=== PATIENT | female | born 1970 | race Two or more races ===

== ENCOUNTER 2016-12-04 10:44 | Inpatient (IN) | payer MEDICAID ==
[~2016-12-04] VITALS: Ht 162.6 cm; Wt 65.3 kg
[2016-12-04] MEDS ORDERED: Diazepam 10mg/2ml Inj IV ONE (11:00)
[2016-12-04 11:10] VITALS: BP 143/81
[2016-12-04 11:17] LABS: BASOPHILS % (AUTO) 1.1 % (0.0-2.0); EOSINOPHILS % (AUTO) 2.7 % (0.0-3.0); LYMPHOCYTES % (AUTO) 22.3 % (20.0-45.0); MEAN CORPUSCULAR HGB CONC 32.4 G/DL (32.0-36.0); MEAN CORPUSCULAR VOLUME 86 FL (80-99); MEAN PLATELET VOLUME 9.4 FL (6.5-10.1); MONOCYTES % (AUTO) 4.4 % (1.0-10.0); NEUTROPHILS % (AUTO) 69.5 % (45.0-75.0); PLATELET COUNT 278 K/UL (150-450); RED BLOOD COUNT 4.86 M/UL (4.20-5.40); RED CELL DISTRIBUTION WIDTH 11.9 % (11.6-14.8); WHITE BLOOD COUNT 8.7 K/UL (4.8-10.8)
[2016-12-04 11:30] VITALS: BP 156/68
[2016-12-04 11:32] LABS: APPEARANCE,URINE CLEAR; KETONES,URINE NEGATIVE (NEGATIVE); LEUKOCYTE ESTERASE ,URINE NEGATIVE (NEGATIVE); NITRITE,URINE NEGATIVE (NEGATIVE); PH,URINE 7 (4.5-8.0); PROTEIN,URINE NEGATIVE (NEGATIVE); UROBILINOGEN,URINE NORMAL MG/DL (0.0-1.0)
[2016-12-04 11:57] LABS: BACTERIA,URINE FEW /HPF; SQUAMOUS EPITHELIAL CELL,UR FEW /LPF (NONE/OCC); WBC,URINE 0-2 /HPF (0 - 2)
[2016-12-04 12:00] LABS: ALANINE AMINOTRANSFERASE 10 U/L (3-33); ALBUMIN/GLOBULIN RATIO 1.2 (1.0-2.7); ANION GAP 15 (5-15); ASPARTATE AMINO TRANSFERASE 15 U/L (5-40); CALCIUM 8.8 mg/dL (8.6-10.2); CARBON DIOXIDE 23 mEQ/L (20-30); CHLORIDE 101 mEQ/L (98-107); CREATININE 0.7 mg/dL (0.5-0.9); GLOMERULAR FILTRATION RATE > 60 mL/min (>60); HEMOLYSIS 10; POTASSIUM 3.6 mEQ/L (3.4-4.9); SODIUM 139 mEQ/L (135-145); TOTAL PROTEIN 7.1 g/dL (6.6-8.7); TROPONIN I < 0.30 ng/mL (<=0.30)
[2016-12-04 12:10] LABS: CKMB < 1.5 ng/mL (< 3.8)
[2016-12-04 12:16] VITALS: BP 118/71
--- NOTE | 2016-12-04 12:35 | Diagnostic Imaging Report ---
Indication: Dizziness Technique: Contiguous 5 mm thick transaxial imaging of the head obtained in a Siemens Sensation [address] scanner. Soft tissue and bone windows generated. Total Dose length Product (DLP): [address] Dose Index Volume (CTDIvol): 70.38 mGy Comparison: none Findings: The size and configuration of the cortical sulci, basal cisterns, and ventricles are within normal limits for age. There is no mass effect, midline shift, or edema identified. There is no evidence of acute hemorrhage or abnormal intra-axial or extra-axial fluid collections. The bones and soft tissues are unremarkable. There is mucosal thickening within the visualized portions of the paranasal sinuses. Impression: No mass effect, edema or acute bleed. Sinusitis The CT scanner at [facility] is accredited by the [employer] and the scans are performed using protocols designed to limit radiation exposure to as low as reasonably achievable to attain images of sufficient resolution adequate for diagnostic evaluation.
--- NOTE | 2016-12-04 12:38 | Diagnostic Imaging Report ---
Indication: Chest Pain Comparison: None A single view chest radiograph was obtained. Findings: Cardiomediastinal appearance is within normal limits for age. Pulmonary vascularity is appropriate. The diaphragmatic contour is smooth and costophrenic angles are sharp. No pleural effusions are identified. The bones are unremarkable. Impression: No acute findings
[2016-12-04] MEDS ORDERED: Meclizine 25mg tab ORAL ONE (12:45)
--- NOTE | 2016-12-04 13:32 | Emergency Room Report ---
History of Present Illness General Chief Complaint: Syncope Source: Patient Present Illness HPI 46-year-old female presents ED for syncopal episode. Per EMS patient stated that she went to work today and once he got to work she was feeling dizzy and nauseous. Vomiting. Patient was sitting in a chair and she slumped over. No reported head injury. Patient here is awake alert oriented x3. States that her head feels like spinning and she feels dizzy and nauseous. Worse with head turning. Denies any headaches, blurry vision. Denies chest pain or shortness of breath. No other aggravating or relieving factors. Denies any other associated symptoms Allergies: Uncoded Allergies: PENECILLIN (Allergy, Unknown, 12/04/16) Patient History Past Medical History: HTN Past Surgical History: none Pertinent Family History: none Social History: Denies: alcohol use, drug use, smoking Now: No Immunizations: UTD Reviewed Nursing Documentation: PMH: Agreed, PSxH: Agreed Nursing Documentation-PMH Past Medical History: No History, Except For Hx Hypertension: Yes Review of Systems All Other Systems: negative except mentioned in HPI Physical Exam Vital Signs Date Time Temp Pulse Resp B/P Pulse Ox O2 Delivery O2 Flow Rate FiO2 12/04/16 10:40 97.3 75 18 155/100 100 Room Air Sp02 EP Interpretation: reviewed, normal General Appearance: no apparent distress, alert, GCS 15, non-toxic Head: normocephalic, atraumatic Eyes: bilateral eye PERRL, bilateral eye normal inspection ENT: hearing grossly normal, normal pharynx, no angioedema, normal voice Neck: full range of motion, supple/symm/no masses Respiratory: chest non-tender, lungs clear, normal breath sounds, speaking full sentences Cardiovascular #1: regular rate, rhythm, no edema Cardiovascular #2: 2+ carotid (R), 2+ carotid (L), 2+ radial (R), 2+ radial (L) , 2+ dorsalis pedis (R), 2+ dorsalis pedis (L) Gastrointestinal: normal bowel sounds, non tender, soft, non-distended, no guarding, no rebound Rectal: deferred Genitourinary: normal inspection, no CVA tenderness Musculoskeletal: back normal, gait/station normal, normal range of motion, non- tender Neurologic: alert, oriented x3, responsive, motor strength/tone normal, sensory intact, speech normal Psychiatric: judgement/insight normal, memory normal, mood/affect normal, no suicidal/homicidal ideation Reflexes: 3+ bicep (R), 3+ bicep (L), 3+ tricep (R), 3+ tricep (L), 3+ knee (R) , 3+ knee (L) Skin: normal color, no rash, warm/dry, well hydrated Lymphatic: no adenopathy Medical Decision Making Diagnostic Impression: Primary Impression: Syncope Qualified Codes: R55 - Syncope and collapse Additional Impressions: Dizziness Unsteady gait ER Course Hospital Course 46-year-old F presents ED s/p syncopal episode, dizziness, and unsteady gait. Differential diagnoses include: MA/unstable angina, arrythmia, dehydration, CVA/ TIA, vertigo Clinical course Patient placed on stretcher. 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 After initial history and physical I ordered labs, EKG, chest x-ray, IVFs, CT Brain, valium, zofran labs reviewed- no leukocytosis, hemoglobin/hematocrit ok, electrolytes okay, troponins negative EKG- NSR, no acute ischemic changes Chest x-ray- no acute process CT brain-unremarkable Patient has no focal neurological deficits. However patient remains dizzy and unsteady gait after her medications. Case discussed with Dr. Mcgraw and he agreed to accept the patient to his service for further care and support I. I feel this is a highly complex case requiring extensive working including EKG/Rhythm strip, Xray/CT/US, Blood/urine lab work, repeat exams while in ED, and administration of strong opiates/narcotics for pain control, admission to hospital or close patient follow up. Diagnosis - syncope, dizziness, unsteady gait admitted to telemetry in serious condition Labs Test 12/04/16 11:07 12/04/16 11:16 12/04/16 11:29 White Blood Count 8.7 K/UL (4.8-10.8) Red Blood Count 4.86 M/UL (4.20-5.40) Hemoglobin 13.6 G/DL (12.0-16.0) Hematocrit 42.0 % (37.0-47.0) Mean Corpuscular Volume 86 FL (80-99) Mean Corpuscular Hemoglobin 28.0 PG (27.0-31.0) Mean Corpuscular Hemoglobin Concent 32.4 G/DL (32.0-36.0) Red Cell Distribution Width 11.9 % (11.6-14.8) Platelet Count 278 K/UL (150-450) Mean Platelet Volume 9.4 FL (6.5-10.1) Neutrophils (%) (Auto) 69.5 % (45.0-75.0) Lymphocytes (%) (Auto) 22.3 % (20.0-45.0) Monocytes (%) (Auto) 4.4 % (1.0-10.0) Eosinophils (%) (Auto) 2.7 % (0.0-3.0) Basophils (%) (Auto) 1.1 % (0.0-2.0) Urine Color Pale yellow Urine Appearance Clear Urine pH 7 (4.5-8.0) Urine Specific [place] 1.010 (1.005-1.035) Urine Protein Negative (NEGATIVE) Urine Glucose (UA) Negative (NEGATIVE) Urine Ketones Negative (NEGATIVE) Urine Occult Blood 4+ (NEGATIVE) Urine Nitrite Negative (NEGATIVE) Urine Bilirubin Negative (NEGATIVE) Urine Urobilinogen Normal MG/DL (0.0-1.0) Urine Leukocyte Esterase Negative (NEGATIVE) Urine RBC 2-4 /HPF (0 - 2) Urine WBC 0-2 /HPF (0 - 2) Urine Squamous Epithelial Cells Few /LPF (NONE/OCC) Urine Bacteria Few /HPF (NONE) Urine HCG, Qualitative Negative Sodium Level 139 mEQ/L (135-145) Potassium Level 3.6 mEQ/L (3.4-4.9) Chloride Level 101 mEQ/L (98-107) Carbon Dioxide Level 23 mEQ/L (20-30) Anion Gap 15 (5-15) Blood Urea Nitrogen 11 mg/dL (7-23) Creatinine 0.7 mg/dL (0.5-0.9) Estimat Glomerular Filtration Rate > 60 mL/min (>60) Glucose Level 97 mg/dL (74-106) Calcium Level 8.8 mg/dL (8.6-10.2) Total Bilirubin 0.3 mg/dL (0.0-1.2) Aspartate Amino Transf (AST/SGOT) 15 U/L (5-40) Alanine Aminotransferase (ALT/SGPT) 10 U/L (3-33) Alkaline Phosphatase 51 U/L (35-104) Total Creatine Kinase 101 U/L (26-140) Creatine Kinase MB < 1.5 ng/mL (< 3.8) Creatine Kinase MB Relative Index Troponin I < 0.30 ng/mL (<=0.30) Pro-B-Type Natriuretic Peptide 43 pg/mL (0-125) Total Protein 7.1 g/dL (6.6-8.7) Albumin 3.9 g/dL (3.5-5.2) Globulin 3.2 g/dL Albumin/Globulin Ratio 1.2 (1.0-2.7) EKG Diagnostic Results Rate: normal Rhythm: NSR ST Segments: no acute changes ASA given to the pt in ED: No Rhythm Strip Diag. Results EP Interpretation: yes Rhythm: NSR, no PVC's, no ectopy Chest X-Ray Diagnostic Results EP Interpretation: No Findings: no consolidation, no effusion, no pneumothorax, no acute cardiopulmonary disease Number of Views: 1 CT/MRI/US Diagnostic Results CT/MRI/US Diagnostic Results : Imaging Test Ordered: CT head Impression no acute process Last Vital Signs Date Time Temp Pulse Resp B/P Pulse Ox O2 Delivery O2 Flow Rate FiO2 12/04/16 12:16 96.8 58 16 118/71 99 Room Air Status: unchanged Disposition: ADMITTED INPATIENT Condition: Serious Referrals: NON PHYSICIAN (PCP) JUDITH ALLEN M.D. Dec 04, 2016 13:32
--- NOTE | 2016-12-04 13:57 | Neurology Progress Note ---
Objective Physical Exam Last Vital Signs Date Time Temp Pulse Resp B/P Pulse Ox O2 Delivery O2 Flow Rate FiO2 12/04/16 12:16 96.8 58 16 118/71 99 Room Air Laboratory Tests Test 12/04/16 11:07 12/04/16 11:16 12/04/16 11:29 White Blood Count 8.7 K/UL (4.8-10.8) Red Blood Count 4.86 M/UL (4.20-5.40) Hemoglobin 13.6 G/DL (12.0-16.0) Hematocrit 42.0 % (37.0-47.0) Mean Corpuscular Volume 86 FL (80-99) Mean Corpuscular Hemoglobin 28.0 PG (27.0-31.0) Mean Corpuscular Hemoglobin Concent 32.4 G/DL (32.0-36.0) Red Cell Distribution Width 11.9 % (11.6-14.8) Platelet Count 278 K/UL (150-450) Mean Platelet Volume 9.4 FL (6.5-10.1) Neutrophils (%) (Auto) 69.5 % (45.0-75.0) Lymphocytes (%) (Auto) 22.3 % (20.0-45.0) Monocytes (%) (Auto) 4.4 % (1.0-10.0) Eosinophils (%) (Auto) 2.7 % (0.0-3.0) Basophils (%) (Auto) 1.1 % (0.0-2.0) Urine Color Pale yellow Urine Appearance Clear Urine pH 7 (4.5-8.0) Urine Specific [place] 1.010 (1.005-1.035) Urine Protein Negative (NEGATIVE) Urine Glucose (UA) Negative (NEGATIVE) Urine Ketones Negative (NEGATIVE) Urine Occult Blood 4+ (NEGATIVE) H Urine Nitrite Negative (NEGATIVE) Urine Bilirubin Negative (NEGATIVE) Urine Urobilinogen Normal MG/DL (0.0-1.0) Urine Leukocyte Esterase Negative (NEGATIVE) Urine RBC 2-4 /HPF (0 - 2) H Urine WBC 0-2 /HPF (0 - 2) Urine Squamous Epithelial Cells Few /LPF (NONE/OCC) Urine Bacteria Few /HPF (NONE) Urine HCG, Qualitative Negative Sodium Level 139 mEQ/L (135-145) Potassium Level 3.6 mEQ/L (3.4-4.9) Chloride Level 101 mEQ/L (98-107) Carbon Dioxide Level 23 mEQ/L (20-30) Anion Gap 15 (5-15) Blood Urea Nitrogen 11 mg/dL (7-23) Creatinine 0.7 mg/dL (0.5-0.9) Estimat Glomerular Filtration Rate > 60 mL/min (>60) Glucose Level 97 mg/dL (74-106) Calcium Level 8.8 mg/dL (8.6-10.2) Total Bilirubin 0.3 mg/dL (0.0-1.2) Aspartate Amino Transf (AST/SGOT) 15 U/L (5-40) Alanine Aminotransferase (ALT/SGPT) 10 U/L (3-33) Alkaline Phosphatase 51 U/L (35-104) Total Creatine Kinase 101 U/L (26-140) Creatine Kinase MB < 1.5 ng/mL (< 3.8) Creatine Kinase MB Relative Index Troponin I < 0.30 ng/mL (<=0.30) Pro-B-Type Natriuretic Peptide 43 pg/mL (0-125) Total Protein 7.1 g/dL (6.6-8.7) Albumin 3.9 g/dL (3.5-5.2) Globulin 3.2 g/dL Albumin/Globulin Ratio 1.2 (1.0-2.7) Impression/Recommendations Problems: (1) Vertigo, benign positional (2) Syncope, vasovagal Status: unchanged Recommendations # [id number] ESPINOZA ARIAS Dec 04, 2016 13:56
[2016-12-04] MEDS ORDERED: Meclizine 25mg tab ORAL PRN (14:00)
[2016-12-04] MEDS ORDERED: Mylanta II UD 30ml ORAL PRN (14:30)
[2016-12-04] MEDS ORDERED: DuoNeb 0.5-3(2.5)mg/3ml neb HHN PRN (14:30)
[2016-12-04] MEDS ORDERED: Nitroglycerin Subl 0.4mg tab (Bottle Of 25) SL PRN (14:30)
[2016-12-04] MEDS ORDERED: Morphine Sulfate 2mg/ml Inj IVP PRN (14:30)
[2016-12-04] MEDS ORDERED: Miralax 17gm pkt ORAL PRN (14:30)
[2016-12-04] MEDS ORDERED: LORazepam Inj 2mg/ml 1ml IV PRN (14:30)
[2016-12-04 15:27] VITALS: BP 138/78
[2016-12-04] MEDS ORDERED: LISINOPRIL5 MG ORAL (15:27)
[2016-12-04 16:23] VITALS: BP 131/80
[2016-12-04] MEDS ORDERED: SOMA350 MG (17:44)
--- NOTE | 2016-12-04 18:28 | Cardiology Progress Note ---
Assessment/Plan Assessment/Plan The patient is seen and examined, full consult note is dictated. Objective Last 24 Hour Vital Signs Date Time Temp Pulse Resp B/P Pulse Ox O2 Delivery O2 Flow Rate FiO2 12/04/16 16:23 97.7 62 20 131/80 100 Room Air 12/04/16 15:28 96.8 63 16 138/78 100 Room Air 12/04/16 15:27 96.8 63 16 138/78 100 Room Air 12/04/16 12:16 96.8 58 16 118/71 99 Room Air 12/04/16 11:30 96.8 71 21 156/68 99 Room Air 12/04/16 11:10 97.3 67 24 143/81 100 Room Air 12/04/16 10:40 97.3 75 18 155/100 100 Room Air Laboratory Tests Test 12/04/16 11:07 12/04/16 11:16 12/04/16 11:29 White Blood Count 8.7 K/UL (4.8-10.8) Red Blood Count 4.86 M/UL (4.20-5.40) Hemoglobin 13.6 G/DL (12.0-16.0) Hematocrit 42.0 % (37.0-47.0) Mean Corpuscular Volume 86 FL (80-99) Mean Corpuscular Hemoglobin 28.0 PG (27.0-31.0) Mean Corpuscular Hemoglobin Concent 32.4 G/DL (32.0-36.0) Red Cell Distribution Width 11.9 % (11.6-14.8) Platelet Count 278 K/UL (150-450) Mean Platelet Volume 9.4 FL (6.5-10.1) Neutrophils (%) (Auto) 69.5 % (45.0-75.0) Lymphocytes (%) (Auto) 22.3 % (20.0-45.0) Monocytes (%) (Auto) 4.4 % (1.0-10.0) Eosinophils (%) (Auto) 2.7 % (0.0-3.0) Basophils (%) (Auto) 1.1 % (0.0-2.0) Urine Color Pale yellow Urine Appearance Clear Urine pH 7 (4.5-8.0) Urine Specific [place] 1.010 (1.005-1.035) Urine Protein Negative (NEGATIVE) Urine Glucose (UA) Negative (NEGATIVE) Urine Ketones Negative (NEGATIVE) Urine Occult Blood 4+ (NEGATIVE) H Urine Nitrite Negative (NEGATIVE) Urine Bilirubin Negative (NEGATIVE) Urine Urobilinogen Normal MG/DL (0.0-1.0) Urine Leukocyte Esterase Negative (NEGATIVE) Urine RBC 2-4 /HPF (0 - 2) H Urine WBC 0-2 /HPF (0 - 2) Urine Squamous Epithelial Cells Few /LPF (NONE/OCC) Urine Bacteria Few /HPF (NONE) Urine HCG, Qualitative Negative Sodium Level 139 mEQ/L (135-145) Potassium Level 3.6 mEQ/L (3.4-4.9) Chloride Level 101 mEQ/L (98-107) Carbon Dioxide Level 23 mEQ/L (20-30) Anion Gap 15 (5-15) Blood Urea Nitrogen 11 mg/dL (7-23) Creatinine 0.7 mg/dL (0.5-0.9) Estimat Glomerular Filtration Rate > 60 mL/min (>60) Glucose Level 97 mg/dL (74-106) Calcium Level 8.8 mg/dL (8.6-10.2) Total Bilirubin 0.3 mg/dL (0.0-1.2) Aspartate Amino Transf (AST/SGOT) 15 U/L (5-40) Alanine Aminotransferase (ALT/SGPT) 10 U/L (3-33) Alkaline Phosphatase 51 U/L (35-104) Total Creatine Kinase 101 U/L (26-140) Creatine Kinase MB < 1.5 ng/mL (< 3.8) Creatine Kinase MB Relative Index Troponin I < 0.30 ng/mL (<=0.30) Pro-B-Type Natriuretic Peptide 43 pg/mL (0-125) Total Protein 7.1 g/dL (6.6-8.7) Albumin 3.9 g/dL (3.5-5.2) Globulin 3.2 g/dL Albumin/Globulin Ratio 1.2 (1.0-2.7) KEVIN STOREY 2, 2017 18:28
[2016-12-04] MEDS: LORazepam 0.5mg tab ORAL SCH (19:14)
--- NOTE | 2016-12-04 19:49 | Consultation ---
DATE OF CONSULTATION: 12/04/2016 CONSULTING PHYSICIAN: Michael Lakhani M.D. REFERRING PHYSICIAN: Ajay Mcgraw D.O. LOCATION: Emergency room. HISTORY OF PRESENT ILLNESS: The patient is a 46-year-old female, seen in neurological consultation, who informs me that she was doing fairly well in her usual state of health, but this morning woke up, feeling well, had her breakfast, and went to work where very soon while sitting, she had acute onset of severe vertigo accompanied by nausea, later an episode of vomiting. She was tried to ambulate and was unable because of instability. She was helped down, given some apples and water, and did not get better. She went to bathroom and on the way back, she lost consciousness and fell. She was described as being very pale and diaphoretic. With this, paramedics were called to the scene. She was brought to emergency room. Blood pressure 155/100, respirations 18, heart rate of 75, and temperature 97.5. Her initial workup included normal CBC study, normal chemistry panel, and normal urinalysis. Imaging studies included a CT scan of the brain, which was normal study with no intracranial abnormalities. No hemorrhage. No midline shift. Chest x-ray, no acute disease noted. Since admission until present, the patient continued to have vertigo, which occurred predominantly when moving ahead and predominantly to the left side. She feels better when she is lying in bed, still with head turned to right. PAST MEDICAL HISTORY: History of hypertension. She has no other major medical problems. MEDICATIONS: Her treatment, she is taking medications for blood pressure, but has no recollection of the name. ALLERGIES: Penicillin. FAMILY HISTORY: Noncontributory. 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 No alcohol. No drug abuse. Nonsmoker. REVIEW OF SYSTEMS: Acute positional vertigo with nausea, unstable gait, but no chest pain. No palpitation. No respiratory problem. No abdominal pain or discomfort. No urinary or bowel incontinence. No evidence of episodes of loss of consciousness, although in her childhood, she had episodes of dizziness. PHYSICAL EXAMINATION: GENERAL: A well-developed, well-nourished, pleasant lady, not in acute distress, lying comfortably in bed. VITAL SIGNS: Now stable. Blood pressure is 118/71 and temperature 96.8. HEENT: Head, normocephalic. No evidence of trauma. Eyes, Ears, Nose, and Throat are clear. NECK: Supple. No meningeal signs. MUSCULOSKELETAL: Examination unremarkable. There are no deformities. Peripheral pulses 1+ and symmetric. MENTAL STATUS: The patient is alert and oriented x3. Her speech is fluent. Language intact. There is no aphasia. No apraxia. Cognitive function normal. CRANIAL NERVES: Cranial Nerves II: Pupils both responding to light and accommodation. Extraocular movement intact. No nystagmus. CRANIAL NERVES V: Normal corneal responses. CRANIAL NERVES VII: No facial asymmetry. CRANIAL NERVES VIII: Grossly normal hearing. CRANIAL NERVES IX THROUGH XII: Tongue is midline. Symmetric palate elevation. MOTOR EXAMINATION: Normal muscle tone. Strength 5/5 in all extremities. No involuntary movements. Deep tendon reflexes are 1+ and symmetric with downgoing toes on both sides. Sensory examination normal to pinprick and light touch. Gait not tested. The patient had severe vertigo when lifting head and turning to left. IMPRESSION: 1. Benign positional vertigo. 2. Hypertension. 3. Syncope, vasovagal. DISCUSSION: 1. The patient developed positional vertigo, nausea, vomiting, and subsequently developed a syncope, which appears to be vasovagal in origin. 2. Initial Treatment with meclizine, intravenous fluids, and Valium so far not affective. 3. Her current neurological exam was unremarkable. There are no lateralizing findings except positional vertigo. RECOMMENDATION: 1. Continue with IV fluids. 2. Ativan 0.25 mg t.i.d. 3. Meclizine 50 mg q.i.d. 4. Bedrest. 5. Reassess in a.m. Thank you for allowing me to see this interesting patient in neurological consultation. Michael Lakhani M.D. DR: RADHA JOB#: [id number] CC:
[2016-12-04 20:00] VITALS: BP 130/71
--- NOTE | 2016-12-04 20:20 | History and Physical Report ---
DATE OF ADMISSION: 12/04/2016 CONSULTANTS: 1. Michael Lakhani M.D. 2. Serg Apodaca M.D. 3. Reg Edmonds M.D. CHIEF COMPLAINTS: Dizziness, weakness, and syncope. HISTORY OF PRESENT ILLNESS: The patient is a 46-year-old female, who lives at home presents with a history of syncopal episodes, witnessed. The patient became lightheaded and passed out. No incontinence. No seizure noted. The patient shortly after came to and was transferred to [facility] where she was diagnosed with syncope, dizziness, and weakness and being admitted to telemetry. Currently, calm in the ER [place]. No complaints. PAST MEDICAL HISTORY: Hypertension. PAST SURGICAL HISTORY: None. MEDICATIONS: Includes , Zofran, and Valium. ALLERGIES: Penicillin. SOCIAL HISTORY: No smoking. No alcohol. No intravenous drug abuse. FAMILY HISTORY: Noncontributory. REVIEW OF SYSTEMS: No chest pain. No shortness of breath. No nausea, vomiting, or diarrhea. PHYSICAL EXAMINATION: GENERAL: Calm in bed, oriented x3, and in no acute distress. VITAL SIGNS: Show temperature is 96 degrees, pulse 58, respirations 16, and blood pressure 118/71. CARDIOVASCULAR: No murmur. LUNGS: Poor air exchange. ABDOMEN: Bowel sounds are positive. Nontender and nondistended. EXTREMITIES: No clubbing, cyanosis, or edema. NEUROLOGIC: Cranial nerves II through XII are grossly intact. Deep tendon reflexes are 2+. Muscle strength is 5/5. LABORATORY DATA: Labs at this time show CBC is normal. BMP is normal. Troponin is less than 0.3. Urinalysis, 4+ occult blood, otherwise normal. ASSESSMENT: 1. Syncope. 2. Dizziness. 3. Weakness. 4. Hypertension. PLAN: 1. Continue premedicatoins. 2. Resume home medications. 3. OT, PT, and dietary evaluation. 4. CBC and BMP in the morning. 5. Troponin q.8 x3. 6. EKG in the morning. 7. Dr. Edmonds, Dr. Lakhani, and Dr. Apodaca to consult. 8. We will continue to follow this patient medically. Ajay Mcgraw D.O. DR: JANAE JOB#: [id number] CC:
[2016-12-04] MEDS: Heparin 5000 units/ml inj SUBQ SCH (22:44)
--- NOTE | 2016-12-05 | Consultation ---
DATE OF CONSULTATION: 12/04/2016 CARDIOLOGY CONSULTATION CONSULTING PHYSICIAN: Serg Apodaca M.D. REFERRING PHYSICIAN: Ajay Mcgraw D.O. REASON FOR CONSULTATION: Management of syncope. HISTORY OF PRESENT ILLNESS: The patient is an unfortunate 46-year-old female with no prior history of syncope, who presents to the hospital with complaints of presyncope, which was followed by syncope. She was at work, started to feel dizzy, lightheaded, and nauseous and she had one episode of vomiting. While she was sitting in a chair, she slumped over. There was no reported injury. When she came around, she had vertigo and continued to be nauseous and dizzy. She was brought to the emergency department of this hospital where initial blood pressure is 155/100, pulse was. At this time, she denied any chest pain or shortness of breath. Cardiology consultation was made at request of Dr. Mcgraw for evaluation of syncope and some allergies with penicillin. PAST MEDICAL HISTORY: Hypertension. PAST SURGICAL HISTORY: None. MEDICATIONS: List of medications at home includes Soma 350 mg daily as needed and lisinopril 5 mg p.o. daily. SOCIAL HISTORY: Denies any tobacco, alcohol, or illicit drug use. REVIEW OF SYSTEMS: A 12-system review done essentially negative except what mentioned in the history of present illness. the pertinent history including no history of diarrhea, no prior history of loss of appetite or decrease in p.o. intake. There is no history of heavy menstruation. PHYSICAL EXAMINATION: VITAL SIGNS: Blood pressure was 150/55 , respirations 18, pulse of 75, temperature 97.3 degrees Fahrenheit, and O2 saturation 100% on room air. GENERAL: The patient is a very pleasant 46-year-old female, in no apparent respiratory distress. Alert and oriented x4. HEENT: Atraumatic and normocephalic. Anicteric. Pupils are equal, round, and reactive to light and accommodation. Extraocular muscles are intact. NECK: JVP is less than 5 cm. No carotid bruits. Carotid upstroke is 2+ bilaterally. CVS: Normal S1 and S2. Regular rate and rhythm. No murmurs, gallops, or rubs. PMI is at fourth intercostal space at midclavicular line. LUNGS: Clear to auscultation bilaterally. ABDOMEN: Soft, nontender, and nondistended. No hepatosplenomegaly. Positive bowel sounds. EXTREMITIES: No evidence of edema, clubbing, or cyanosis. IMAGING: Chest x-ray showed no acute cardiopulmonary disease. CT scan of head showed no mass effect, edema, or acute bleed. LABORATORY FINDINGS: WBC 8.7, hemoglobin of 13.6, hematocrit of 42.0, and platelet count is 270,000. Sodium is 139, potassium 3.6, chloride 101, bicarbonate 23, BUN of 11, creatinine 0.7, glucose is 97, and calcium is 8.8. Her troponin I is less than 0.3. ProBNP was 43. DIAGNOSTIC STUDIES: A 12-lead electrocardiogram shows sinus rhythm with a rate of 73 with normal axis, left ventricular hypertrophy by voltage criteria, with no acute ST and T-wave abnormalities. ASSESSMENT AND PLAN: The patient is a very unfortunate 46-year-old female, seen in Cardiology consultation at request of Dr. Mcgraw. 1. Syncope. This was preceded by presyncope, most likely etiology is neurally mediated syncope, although I cannot rule out orthostatic hypotension. The patient does not have any triggering factor that would have caused hypovolemia. I would like to perform a complete workup of syncope including 2D echocardiography and orthostatic vitals. The patient required aggressive hydration by mouth liquids if tolerated. 2. Accelerated hypertension. On arrival to the emergency department, the patient will be on amlodipine at 2.5 mg daily and we will up titrate this medication. 3. Left ventricular hypertrophy follow with 2D echocardiography and make necessary recommendations. I would like to thank, Dr. Mcgraw, for allowing me to participate in the care of this patient. Serg Apodaca M.D. DR: AYLA JOB#: [id number] CC:
[2016-12-05 00:04] VITALS: BP 108/69
[2016-12-05 04:05] VITALS: BP 116/75
[2016-12-05 08:02] VITALS: BP 115/72
[2016-12-05 08:57] LABS: BASOPHILS % (AUTO) 1.5 % (0.0-2.0); LYMPHOCYTES % (AUTO) 31.9 % (20.0-45.0); MEAN CORPUSCULAR HEMOGLOBIN 27.9 PG (27.0-31.0); MEAN CORPUSCULAR HGB CONC 32.2 G/DL (32.0-36.0); MEAN CORPUSCULAR VOLUME 87 FL (80-99); MEAN PLATELET VOLUME 9.6 FL (6.5-10.1); MONOCYTES % (AUTO) 5.8 % (1.0-10.0); NEUTROPHILS % (AUTO) 54.8 % (45.0-75.0); PLATELET COUNT 286 K/UL (150-450); RED BLOOD COUNT 4.69 M/UL (4.20-5.40); RED CELL DISTRIBUTION WIDTH 11.6 % (11.6-14.8); WHITE BLOOD COUNT 5.6 K/UL (4.8-10.8)
[2016-12-05] MEDS: LORazepam 0.5mg tab ORAL SCH ×2 (09:07→17:54)
[2016-12-05] MEDS: Heparin 5000 units/ml inj SUBQ SCH ×2 (09:08→21:00)
[2016-12-05 09:12] LABS: INR 1.1 (0.9-1.1); PROTHROMBIN TIME 10.9 SEC (9.30-11.50)
[2016-12-05 09:25] LABS: ALANINE AMINOTRANSFERASE 10 U/L (3-33); ALBUMIN/GLOBULIN RATIO 1.2 (1.0-2.7); ANION GAP 15 (5-15); ASPARTATE AMINO TRANSFERASE 14 U/L (5-40); CALCIUM 9.2 mg/dL (8.6-10.2); CARBON DIOXIDE 25 mEQ/L (20-30); CHLORIDE 104 mEQ/L (98-107); CHOLESTEROL 195 mg/dL (< 200); CREATININE 0.8 mg/dL (0.5-0.9); GLOMERULAR FILTRATION RATE > 60 mL/min (>60); HEMOLYSIS 2; LDL CHOLESTEROL (CALC.) 117 mg/dL (60-99); POTASSIUM 3.7 mEQ/L (3.4-4.9); SODIUM 144 mEQ/L (135-145); TOTAL PROTEIN 7.2 g/dL (6.6-8.7)
--- NOTE | 2016-12-05 11:49 | General Progress Note ---
Assessment/Plan Problem List: (1) Syncope ICD Codes: R55 - Syncope and collapse SNOMED: 575020701, [id number] Qualifiers: Qualified Codes: R55 - Syncope and collapse (2) Unsteady gait ICD Codes: R26.81 - Unsteadiness on feet SNOMED: 57729607, 872792046 (3) Vertigo, benign positional ICD Codes: H81.10 - Benign paroxysmal vertigo, unspecified ear SNOMED: 734319105 (4) Dizziness ICD Codes: R42 - Dizziness and giddiness SNOMED: 792739214, 459587670 (5) HTN (hypertension) ICD Codes: I10 - Essential (primary) hypertension SNOMED: 77576728 Status: stable, progressing, tolerating diet Assessment/Plan ot pt diet neuro cardio eval dc if clear Subjective Constitutional: Reports: weakness Allergies: Coded Allergies: PENICILLINS (Verified Allergy, Unknown, 12/04/16) Uncoded Allergies: PENECILLIN (Allergy, Unknown, 12/04/16) All Systems: reviewed and negative except above Subjective calm in bed Objective Last 24 Hour Vital Signs Date Time Temp Pulse Resp B/P Pulse Ox O2 Delivery O2 Flow Rate FiO2 12/05/16 09:25 89 12/05/16 09:20 74 12/05/16 09:15 62 12/05/16 08:02 97.9 61 18 115/72 99 Room Air 12/05/16 07:50 68 12/05/16 04:05 98.8 50 18 116/75 96 Room Air 12/05/16 04:00 57 12/05/16 00:04 98.2 53 19 108/69 98 Room Air 12/05/16 00:03 53 55 79 12/05/16 00:00 62 12/04/16 23:51 68 16 Room Air 21 12/04/16 21:46 61 65 76 12/04/16 20:00 58 12/04/16 20:00 97.8 61 21 130/71 98 Room Air 12/04/16 16:23 97.7 62 20 131/80 100 Room Air 12/04/16 16:00 58 12/04/16 15:28 96.8 63 16 138/78 100 Room Air 12/04/16 15:27 96.8 63 16 138/78 100 Room Air 12/04/16 12:16 96.8 58 16 118/71 99 Room Air Intake and Output 12/04/16 12/05/16 19:00 07:00 Intake Total 100 ml Balance 100 ml Intake Oral 100 ml # Voids 4 1 Laboratory Tests 12/05/16 06:10: White Blood Count 5.6, Red Blood Count 4.69, Hemoglobin 13.1, Hematocrit 40.7, Mean Corpuscular Volume 87, Mean Corpuscular Hemoglobin 27.9, Mean Corpuscular Hemoglobin Concent 32.2, Red Cell Distribution Width 11.6, Platelet Count 286, Mean Platelet Volume 9.6, Neutrophils (%) (Auto) 54.8, Lymphocytes (%) (Auto) 31.9, Monocytes (%) (Auto) 5.8, Eosinophils (%) (Auto) 6.0H, Basophils (%) (Auto ) 1.5, Prothrombin Time 10.9, Prothromb Time International Ratio 1.1, Activated Partial Thromboplast Time 29, Sodium Level 144, Potassium Level 3.7, Chloride Level 104, Carbon Dioxide Level 25, Anion Gap 15, Blood Urea Nitrogen 14, Creatinine 0.8, Estimat Glomerular Filtration Rate > 60, Glucose Level 79, Calcium Level 9.2, Total Bilirubin 0.4, Aspartate Amino Transf (AST/SGOT) 14, Alanine Aminotransferase (ALT/SGPT) 10, Alkaline Phosphatase 54, Total Protein 7.2, Albumin 4.0, Globulin 3.2, Albumin/Globulin Ratio 1.2, Triglycerides Level 60, Cholesterol Level 195, LDL Cholesterol 117H, HDL Cholesterol 66H, Cholesterol/HDL Ratio 3.0L, Thyroid Stimulating Hormone (TSH) 1.060 Height (Feet): 5 Height (Inches): 4.00 Weight (Pounds): 144 General Appearance: lethargic EENT: normal ENT inspection Neck: normal alignment Cardiovascular: normal peripheral pulses, normal rate, regular rhythm Respiratory/Chest: chest wall non-tender, lungs clear, normal breath sounds Abdomen: normal bowel sounds, non tender, soft Extremities: normal inspection Edema: no edema noted Arm (L), no edema noted Arm (R), no edema noted Leg (L), no edema noted Leg (R), no edema noted Pedal (L), no edema noted Pedal (R), no edema noted Generalized Neurologic: responsive, motor weakness Skin: normal pigmentation, warm/dry GRAVES,ANGELA Dec 05, 2016 11:48
--- NOTE | 2016-12-05 11:58 | Neurology Progress Note ---
Interim History Interim History ROS Limited/Unobtainable: No Complaints: positional vertigo sleepy Events: less dizzy Objective Physical Exam Last Vital Signs Date Time Temp Pulse Resp B/P Pulse Ox O2 Delivery O2 Flow Rate FiO2 12/05/16 09:25 89 12/05/16 08:02 97.9 18 115/72 99 Room Air 12/04/16 23:51 21 Laboratory Tests Test 12/05/16 06:10 White Blood Count 5.6 K/UL (4.8-10.8) Red Blood Count 4.69 M/UL (4.20-5.40) Hemoglobin 13.1 G/DL (12.0-16.0) Hematocrit 40.7 % (37.0-47.0) Mean Corpuscular Volume 87 FL (80-99) Mean Corpuscular Hemoglobin 27.9 PG (27.0-31.0) Mean Corpuscular Hemoglobin Concent 32.2 G/DL (32.0-36.0) Red Cell Distribution Width 11.6 % (11.6-14.8) Platelet Count 286 K/UL (150-450) Mean Platelet Volume 9.6 FL (6.5-10.1) Neutrophils (%) (Auto) 54.8 % (45.0-75.0) Lymphocytes (%) (Auto) 31.9 % (20.0-45.0) Monocytes (%) (Auto) 5.8 % (1.0-10.0) Eosinophils (%) (Auto) 6.0 % (0.0-3.0) H Basophils (%) (Auto) 1.5 % (0.0-2.0) Prothrombin Time 10.9 SEC (9.30-11.50) Prothromb Time International Ratio 1.1 (0.9-1.1) Activated Partial Thromboplast Time 29 SEC (23-33) Sodium Level 144 mEQ/L (135-145) Potassium Level 3.7 mEQ/L (3.4-4.9) Chloride Level 104 mEQ/L (98-107) Carbon Dioxide Level 25 mEQ/L (20-30) Anion Gap 15 (5-15) Blood Urea Nitrogen 14 mg/dL (7-23) Creatinine 0.8 mg/dL (0.5-0.9) Estimat Glomerular Filtration Rate > 60 mL/min (>60) Glucose Level 79 mg/dL (74-106) Calcium Level 9.2 mg/dL (8.6-10.2) Total Bilirubin 0.4 mg/dL (0.0-1.2) Aspartate Amino Transf (AST/SGOT) 14 U/L (5-40) Alanine Aminotransferase (ALT/SGPT) 10 U/L (3-33) Alkaline Phosphatase 54 U/L (35-104) Total Protein 7.2 g/dL (6.6-8.7) Albumin 4.0 g/dL (3.5-5.2) Globulin 3.2 g/dL Albumin/Globulin Ratio 1.2 (1.0-2.7) Triglycerides Level 60 mg/dL (< 150) Cholesterol Level 195 mg/dL (< 200) LDL Cholesterol 117 mg/dL (60-99) H HDL Cholesterol 66 mg/dL (> 60) H Cholesterol/HDL Ratio 3.0 (3.3-4.4) L Thyroid Stimulating Hormone (TSH) 1.060 uIU/mL (0.300-4.500) General: well developed, well nourished, no acute distress Head: normocophalic, atraumatic Neck: no rigidity Neurologic Exam Mental Status: awake, alert, oriented x4, normal cognition, good mathematical skills, normal recent memory, normal remote memory, preserved visuospatial function Speech: normal speech, no dysarthia Language: normal language, no aphasia Cranial Nerve II: fundus normal, visual john, no papilledema Cranial Nerves III, IV, : PERRLA, EOMI, pupils Cranial Nerve V: normal facial sensations, temporales function normal, masseters function normal, pterygoids function normal Cranial Nerve VII: no facial asymmetry, normal facial expressions Cranial Nerve VIII: normal hearing, no nystagmus, other - with head to L get vertigo Cranial Nerve IX: normal palate elevation, gag response Cranial Nerve X: no voice hoarseness Cranial Nerve XI: SCM symmetric, trapezii function normal Cranial Nerve XII: tongue midline, no tongue atrophy/fasciculations Motor System: normal muscle tone, strength 5/5, no involuntary movement, no muscle wasting Sensory: normal pinprick, normal light touch, normal position sense, normal graphesthesia Coordination: normal finger to nose bilaterally, normal heel to [place] bilaterally, negative Romberg test Deep Tendon Reflexes: 2+ ankle (L), 2+ ankle (R), 2+ bicep (L), 2+ bicep (R), 2 + brachioradialis (L), 2+ brachioradialis (R), 2+ knee (L), 2+ knee (R), 2+ tricep (L), 2+ tricep (R) Stance: normal Gait: stable, normal regular, heel + toe gait, other - slow Impression/Recommendations Problems: (1) Vertigo, benign positional (2) Syncope, vasovagal Status: stable, progressing, tolerating diet Recommendations # [id number] carotid ok labs ok CT brain nl cont present rx ok d/c planning ESPINOZA ARIAS Dec 05, 2016 11:58
[2016-12-05 12:01] VITALS: BP 127/73
--- NOTE | 2016-12-05 12:53 | Consultation ---
History of Present Illness General Date patient seen: Dec 05, 2016 Chief Complaint: Syncope Referring physician: Dr. Lake Reason for Consultation: Inpatient management Present Illness HPI 46-year-old female with hx of asthma, htn presented to ED for syncopal episode. She was feeling dizzy and nauseous and vomiting. Patient was sitting in a chair and she slumped over. No reported head injury. Patient here is awake alert oriented x3. States that her head feels like spinning and she feels dizzy and nauseous. she is admitted to telemetry to evaluate her syncopal episode. Allergies: Coded Allergies: PENICILLINS (Verified Allergy, Unknown, 12/04/16) Uncoded Allergies: PENECILLIN (Allergy, Unknown, 12/04/16) Medication History Scheduled Lisinopril (Lisinopril*), 5 MG ORAL DAILY, (Reported) Miscellaneous Medications Carisoprodol* (Soma*), (Reported) Patient History Healthcare decision maker Resuscitation status Full Code Advanced Directive on File Past Medical/Surgical History Past Medical/Surgical History: (1) HTN (hypertension) Review of Systems All Other Systems: negative except mentioned in HPI Physical Exam General Appearance: WD/WN Lines, tubes and drains: peripheral, central line HEENT: normocephalic, atraumatic, anicteric, mucous membranes moist Neck: non-tender, normal alignment, supple Respiratory/Chest: chest wall non-tender, lungs clear Breasts: no masses Cardiovascular/Chest: normal rate Abdomen: normal bowel sounds, non tender Extremities: normal range of motion Skin Exam: normal pigmentation Last 24 Hour Vital Signs Date Time Temp Pulse Resp B/P Pulse Ox O2 Delivery O2 Flow Rate FiO2 12/05/16 12:01 97.0 64 18 127/73 96 Room Air 12/05/16 09:25 89 12/05/16 09:20 74 12/05/16 09:15 62 12/05/16 08:02 97.9 61 18 115/72 99 Room Air 12/05/16 07:50 68 12/05/16 07:30 62 18 Room Air 21 12/05/16 04:05 98.8 50 18 116/75 96 Room Air 12/05/16 04:00 57 12/05/16 00:04 98.2 53 19 108/69 98 Room Air 12/05/16 00:03 53 55 79 12/05/16 00:00 62 12/04/16 23:51 68 16 Room Air 21 12/04/16 21:46 61 65 76 12/04/16 20:00 58 12/04/16 20:00 97.8 61 21 130/71 98 Room Air 12/04/16 16:23 97.7 62 20 131/80 100 Room Air 12/04/16 16:00 58 12/04/16 15:28 96.8 63 16 138/78 100 Room Air 12/04/16 15:27 96.8 63 16 138/78 100 Room Air Intake and Output 12/04/16 12/05/16 19:00 07:00 Intake Total 100 ml Balance 100 ml Intake Oral 100 ml # Voids 4 1 Laboratory Tests Test 12/05/16 06:10 White Blood Count 5.6 K/UL (4.8-10.8) Red Blood Count 4.69 M/UL (4.20-5.40) Hemoglobin 13.1 G/DL (12.0-16.0) Hematocrit 40.7 % (37.0-47.0) Mean Corpuscular Volume 87 FL (80-99) Mean Corpuscular Hemoglobin 27.9 PG (27.0-31.0) Mean Corpuscular Hemoglobin Concent 32.2 G/DL (32.0-36.0) Red Cell Distribution Width 11.6 % (11.6-14.8) Platelet Count 286 K/UL (150-450) Mean Platelet Volume 9.6 FL (6.5-10.1) Neutrophils (%) (Auto) 54.8 % (45.0-75.0) Lymphocytes (%) (Auto) 31.9 % (20.0-45.0) Monocytes (%) (Auto) 5.8 % (1.0-10.0) Eosinophils (%) (Auto) 6.0 % (0.0-3.0) H Basophils (%) (Auto) 1.5 % (0.0-2.0) Prothrombin Time 10.9 SEC (9.30-11.50) Prothromb Time International Ratio 1.1 (0.9-1.1) Activated Partial Thromboplast Time 29 SEC (23-33) Sodium Level 144 mEQ/L (135-145) Potassium Level 3.7 mEQ/L (3.4-4.9) Chloride Level 104 mEQ/L (98-107) Carbon Dioxide Level 25 mEQ/L (20-30) Anion Gap 15 (5-15) Blood Urea Nitrogen 14 mg/dL (7-23) Creatinine 0.8 mg/dL (0.5-0.9) Estimat Glomerular Filtration Rate > 60 mL/min (>60) Glucose Level 79 mg/dL (74-106) Calcium Level 9.2 mg/dL (8.6-10.2) Total Bilirubin 0.4 mg/dL (0.0-1.2) Aspartate Amino Transf (AST/SGOT) 14 U/L (5-40) Alanine Aminotransferase (ALT/SGPT) 10 U/L (3-33) Alkaline Phosphatase 54 U/L (35-104) Total Protein 7.2 g/dL (6.6-8.7) Albumin 4.0 g/dL (3.5-5.2) Globulin 3.2 g/dL Albumin/Globulin Ratio 1.2 (1.0-2.7) Triglycerides Level 60 mg/dL (< 150) Cholesterol Level 195 mg/dL (< 200) LDL Cholesterol 117 mg/dL (60-99) H HDL Cholesterol 66 mg/dL (> 60) H Cholesterol/HDL Ratio 3.0 (3.3-4.4) L Thyroid Stimulating Hormone (TSH) 1.060 uIU/mL (0.300-4.500) Height (Feet): 5 Height (Inches): 4.00 Weight (Pounds): 144 Medications Current Medications Medications (Trade) Dose Ordered Sig/Halima Route PRN Reason Start Time Stop Time Status Last Admin Dose Admin Acetaminophen (Tylenol) 650 mg Q4H PRN ORAL fever 12/04/16 14:30 01/03/17 14:29 Al Hydroxide/Mg Hydroxide (Mylanta II) 30 ml Q6H PRN ORAL dyspepsia 12/04/16 14:30 01/03/17 14:29 Albuterol/ Ipratropium (DuoNeb 0.5-3(2.5)mg/3ml) 3 ml EVERY 4 HOURS PRN HHN Shortness of Breath 12/04/16 14:30 12/09/16 14:29 Clonidine HCl (Catapres) 0.1 mg Q4H PRN ORAL For High Blood Pressure 12/04/16 14:30 01/03/17 14:29 Dextrose (Dextrose 50%) STAT PRN IV Hypoglycemia 12/04/16 14:30 01/03/17 14:29 Heparin Sodium (Porcine) (Heparin 5000 units/ml) 5,000 units EVERY 12 HOURS SUBQ 12/04/16 21:00 01/03/17 20:59 12/05/16 09:08 Lorazepam (Ativan 2mg/ml 1ml) 0.5 mg Q4H PRN IV For Anxiety 12/04/16 14:30 12/11/16 14:29 Lorazepam (Ativan) 0.5 mg BID ORAL 12/04/16 18:00 12/11/16 17:59 12/05/16 09:07 Meclizine HCl (Antivert) 25 mg Q6H PRN ORAL for dizziness 12/04/16 14:00 01/03/17 13:59 Morphine Sulfate (Morphine Sulfate) 1 mg EVERY 4 HOURS PRN IVP For Pain 7-10 12/04/16 14:30 12/11/16 14:29 Nitroglycerin (Ntg) 0.4 mg Q5M X 3 DOSES PRN SL Prn Chest Pain 12/04/16 14:30 01/03/17 14:29 Ondansetron HCl (Zofran) 4 mg Q6H PRN IVP Nausea & Vomiting 12/04/16 14:30 01/03/17 14:29 Polyethylene Glycol (Miralax) 17 gm HSPRN PRN ORAL Constipation 12/04/16 14:30 01/03/17 14:29 Temazepam (Restoril) 15 mg HSPRN PRN ORAL Insomnia 12/04/16 14:30 12/11/16 14:29 Assessment/Plan Problem List: (1) Syncope ICD Codes: R55 - Syncope and collapse SNOMED: 231148750, [id number] Qualifiers: Qualified Codes: R55 - Syncope and collapse (2) Vertigo, benign positional ICD Codes: H81.10 - Benign paroxysmal vertigo, unspecified ear SNOMED: 953370881 (3) HTN (hypertension) ICD Codes: I10 - Essential (primary) hypertension SNOMED: 56738875 Assessment/Plan cardiology work up in process neuro evaluation monitor bp echocardiogram orthostatic bp ANNAMARIE NATHAN Dec 05, 2016 12:53
--- NOTE | 2016-12-05 13:29 | Cardiology Report ---
APPROVED REPORT EXAM: Two-dimensional and M-mode echocardiogram with Doppler and color Doppler. INDICATION LV function M-Mode DIMENSIONS IVSd0.7 (0.7-1.1cm)Left Atrium (MM)3.7 (1.6-4.0cm) LVDd4.1 (3.5-5.6cm)Aortic Root3.3 (2.0-3.7cm) PWd0.8 (0.7-1.1cm)Aortic Cusp Exc.1.9 (1.5-2.0cm) LVDs2.7 (2.5-4.0cm) PWs1.3 cm Normal left ventricular chamber size, systolic function and wall motion. Left ventricular ejection fraction estimated to be 60 %. Mild left ventricular hypertrophy by 2-D. No evidence of pericardial effusion. All other cardiac chamber sizes are within normal limits. Mild focal aortic valve sclerosis with adequate cusp excursion. Mildly thickened mitral valve leaflets with normal excursion. Mild mitral annulus and aortic root calcification. Pulmonic valve not well visualized. Normal tricuspid valve structure. IVC at normal size with physiologic collapse. A color flow and spectral Doppler study was performed and revealed: No aortic regurgitation. Mild mitral regurgitation. Mitral inflow indicates normal left ventricular diastolic function. Trace tricuspid regurgitation. Tricuspid systolic velocities suggests peak right ventricular systolic pressure of 20 mmHg. No pulmonic regurgitation present.
--- NOTE | 2016-12-05 14:15 | Cardiology Report ---
APPROVED REPORT EKG Measurement Heart [id number] Normal sinus rhythm Moderate voltage criteria for LVH, may be normal variant Borderline ECG
[2016-12-05 16:00] VITALS: BP 123/75
[2016-12-05 20:00] VITALS: BP 139/92
[2016-12-05] MEDS ORDERED: NS 275ml ONE (23:04)
[2016-12-05] MEDS ORDERED: Tubing IV Secondary IV ONE (23:04)
[2016-12-08] MEDS ORDERED: MECLIZINE HCL25 MG ORAL (09:44)
--- NOTE | 2016-12-08 09:45 | Discharge Summary ---
Discharge Summary Hospital Course Date of Admission Dec 04, 2016 at 13:00 Date of Discharge Dec 05, 2016 at 23:05 Admitting Diagnosis dizziness, unsteady gait HPI Nicole Cha is a 46 year old female who was admitted on Dec 04, 2016 at 13:00 for Dizziness,Unsteady Gait Hospital Course dc summary # [id number] Discharge Medications New Medications: Meclizine Hcl* (Meclizine*) 25 Mg Tablet 25 MG ORAL THREE TIMES A DAY PRN, #30 TAB Continued Medications: Lisinopril (Lisinopril*) 5 Mg Tablet 5 MG ORAL DAILY, TAB Discharge Condition Upon Discharge: stable Discharge Disposition Patient was discharged to Home () Discharge Diagnoses: Discharge Instructions Discharge Instructions Special Instructions I have been assigned to complete a D/C Summary on this account. I was not involved in the patient management Hui Andrew NP (Vanchtein) Dec 08, 2016 09:45
--- NOTE | 2016-12-09 00:18 | Discharge Summary 2 SIG ---
DATE OF ADMISSION: 12/04/2016 DATE OF DISCHARGE: 12/05/2016 REASON FOR ADMISSION: 46-year-old female presented to the emergency room for syncopal episode. She felt dizzy, nauseous, and vomited x1. She slumped out of the chair where she was sitting. She reported no head injury. The patient upon presentation was awake, alert, and oriented x3. She felt like her head was spinning. She felt dizzy and nauseous and worse while turning head. She denied any headache, blurry vision, chest pain, or shortness of breath. CT of the head in the emergency room was negative fro any acute intracranial pathology. EKG showed normal sinus rhythm with possible left ventricular hypertrophy. Chest x-ray was negative. Electrolytes were stable. Troponin negative. Hemoglobin and hematocrit stable. No leukocytosis. Blood pressure was elevated in the emergency room to 155/100. The patient has known history of hypertension. The patient was admitted to telemetry floor for further management. ADMITTING DIAGNOSES: 1. Syncope. 2. Benign positional vertigo. 3. Hypertensive urgency. HOSPITAL STAY: The patient was admitted on telemetry floor. Cardiology and Neurology consults were requested. CT of the head was negative for any acute intracranial pathology. Carotid duplex was negative. No evidence of stenosis. Orthostatic vital signs were taken, no evidence of orthostatic changes. On telemetry, no evidence of arrhythmia. 2D-echo revealed preserved ejection fraction of 60%, right ventricular systolic pressure of 20, and evidence of mild left ventricular hypertrophy. Blood pressure was managed with a low dose of CHRIS inhibitor. Renal parameters stable. Antivert provided on as-needed basis. Per Neurology and Cardiology, the patient likely has syncope of vasovagal origin along with BPV. Due to the rapid and unexpected improvement in the patient's condition, the patient was discharged in one day. DISCHARGE DIAGNOSES: 1. Syncope, likely vasovagal. 2. Benign positional vertigo. 3. Hypertensive urgency, resolved. DISCHARGE MEDICATIONS: See medication reconciliation list. DISCHARGE INSTRUCTIONS: The patient to follow up with the primary medical doctor. Ajay Mcgraw D.O. I have been assigned to dictate discharge summary on this account and I was not involved in the patient's management. Hui Lilivan N.PRosemary DR: HI JOB#: [id number] CC: MANE
--- NOTE | 2016-12-09 12:05 | Diagnostic Imaging Report ---
APPROVED REPORT CPT Code: 20814 Vascular Symptoms Syncope Doppler Spectral Velocity Analysis RightLeft RIGHT SIDE: CCA/BULB - Imaging reveals irregular, minimal plaque in the carotid bulb. arteries. VERTEBRAL - The vertebral artery is patent, without evidence of stenosis or steal. carotid artery. The Doppler spectral flow analysis indicates the degree of stenosis is minimal (10%) in the common carotid artery, mild (30-50%) in the internal carotid artery, and mild (30-50%) in the external carotid artery. VERTEBRAL- The vertebral artery is patent, without evidence of stenosis or steal.
== END 2016-12-05 23:05 | disposition home or self-care (01) | DRG 111 ==
LOC: EDBD 10:44 → EMR 11:20 → 2E 13:00 → EDBEDREQ 13:05
DX: H81.10 Benign paroxysmal vertigo, unspecified ear (principal); R55 Syncope and collapse; I16.0 Hypertensive urgency; Z88.0 Allergy status to penicillin; I51.7 Cardiomegaly; R26.81 Unsteadiness on feet
CPT/HCPCS: 36415; 70450; 71010; 80053; 80061; 81003; 81025; 82550; 82553; 83880; 84443; 84484; 85025; 85610; 85730; 93005; 93306; 93880; 94664; J2405; J7620

== ENCOUNTER 2017-05-25 19:54 | Emergency (ER) | payer MEDICAID ==
[~2017-05-25] VITALS: Ht 162.6 cm; Wt 66.2 kg
[~2017-05-25 19:54] MED LIST: LISINOPRIL5 MG ORAL; MECLIZINE HCL25 MG ORAL; SOMA350 MG
--- NOTE | 2017-05-25 20:14 | Emergency Room Report ---
History of Present Illness General Chief Complaint: Chest Pain Source: Patient Present Illness HPI Patient presents with chest pressure. Started earlier today. It was worse when she tried to lift her nephew. In addition to that is worse when she lays down it's also somewhat pleuritic. She states it is 7/10 and pressure. Radiating to her back. She has nausea associated with that. This causes fear about cardiac problems. She also has indigestion feelings. The patient has a history of hypertension and GERD. She denies any previous cardiac evaluation. No fever, cough, sore throat, clotting problems, calf pain, swelling VD, dysuria. She is not . 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 Last Menstrual Period: 05/15/17 Now: No Reviewed Nursing Documentation: PMH: Agreed, PSxH: Agreed Nursing Documentation-PMH Past Medical History: No History, Except For Hx Cardiac Problems: No Hx Hypertension: Yes Hx Asthma: Yes Hx Cancer: No Hx Gastrointestinal Problems: No Hx Neurological Problems: No Review of Systems All Other Systems: negative except mentioned in HPI Physical Exam Vital Signs Date Time Temp Pulse Resp B/P Pulse Ox O2 Delivery O2 Flow Rate FiO2 05/25/17 19:59 98.1 64 18 159/91 100 Room Air Sp02 EP Interpretation: reviewed, normal General Appearance: well appearing, no apparent distress, GCS 15 Head: normocephalic Eyes: bilateral eye PERRL, bilateral eye normal inspection ENT: moist mucus membranes Neck: supple Respiratory: lungs clear, normal breath sounds Cardiovascular #1: regular rate, rhythm Cardiovascular #2: 2+ radial (R) Gastrointestinal: normal inspection, normal bowel sounds, non tender, no mass, non-distended Musculoskeletal: back normal, gait/station normal, normal range of motion Neurologic: alert, oriented x3, grossly normal Psychiatric: anxious Skin: normal inspection, warm/dry Medical Decision Making Diagnostic Impression: Primary Impression: Chest pain Qualified Codes: R07.9 - Chest pain, unspecified ER Course Patient presents with chest pain. History is more c/w chest wall strain though there is also some elements of GERD. Evaluation needs to exclude cardiac cause (AMI, ACS, pericarditis). Also need to evaluation lungs. EKG, CXR and labs ordered. Only risk factor is HTN. Will treat GI symptoms. Exam against PE. n Treatment focused on GI cause. EKG normal. CXR normal. Labs unremarkable. Patient pain free after treatment. Patient stable for outpatient observation and treatment. Laboratory Tests Test 05/25/17 20:25 White Blood Count 8.7 K/UL (4.8-10.8) Red Blood Count 4.28 M/UL (4.20-5.40) Hemoglobin 12.6 G/DL (12.0-16.0) Hematocrit 37.8 % (37.0-47.0) Mean Corpuscular Volume 88 FL (80-99) Mean Corpuscular Hemoglobin 29.4 PG (27.0-31.0) Mean Corpuscular Hemoglobin Concent 33.2 G/DL (32.0-36.0) Red Cell Distribution Width 11.1 % (11.6-14.8) L Platelet Count 243 K/UL (150-450) Mean Platelet Volume 10.1 FL (6.5-10.1) Neutrophils (%) (Auto) 50.3 % (45.0-75.0) Lymphocytes (%) (Auto) 33.4 % (20.0-45.0) Monocytes (%) (Auto) 5.3 % (1.0-10.0) Eosinophils (%) (Auto) 8.7 % (0.0-3.0) H Basophils (%) (Auto) 2.3 % (0.0-2.0) H Urine Color Pale yellow Urine Appearance Clear Urine pH 7 (4.5-8.0) Urine Specific [place] 1.005 (1.005-1.035) Urine Protein Negative (NEGATIVE) Urine Glucose (UA) Negative (NEGATIVE) Urine Ketones Negative (NEGATIVE) Urine Occult Blood Negative (NEGATIVE) Urine Nitrite Negative (NEGATIVE) Urine Bilirubin Negative (NEGATIVE) Urine Urobilinogen Normal MG/DL (0.0-1.0) Urine Leukocyte Esterase Negative (NEGATIVE) Urine HCG, Qualitative Negative Sodium Level 139 mEQ/L (135-145) Potassium Level 3.4 mEQ/L (3.4-4.9) Chloride Level 103 mEQ/L (98-107) Carbon Dioxide Level 25 mEQ/L (20-30) Anion Gap 11 (5-15) Blood Urea Nitrogen 12 mg/dL (7-23) Creatinine 0.7 mg/dL (0.5-0.9) Estimate Glomerular Filtration Rate > 60 mL/min (>60) Glucose Level 84 mg/dL (74-106) Calcium Level 9.3 mg/dL (8.6-10.2) Total Bilirubin 0.2 mg/dL (0.0-1.2) Aspartate Amino Transferase (AST) 19 U/L (5-40) Alanine Aminotransferase (ALT) 14 U/L (3-33) Alkaline Phosphatase 58 U/L (35-104) Total Creatine Kinase 177 U/L (26-140) H Troponin I < 0.30 ng/mL (<=0.30) Total Protein 7.5 g/dL (6.6-8.7) Albumin 4.5 g/dL (3.5-5.2) Globulin 3.0 g/dL Albumin/Globulin Ratio 1.5 (1.0-2.7) EKG Diagnostic Results Rate: bradycardiac Rhythm: NSR ST Segments: no acute changes Rhythm Strip Diag. Results EP Interpretation: yes Rhythm: no PVC's, no ectopy, other - ana Chest X-Ray Diagnostic Results Chest X-Ray Diagnostic Results : Chest X-Ray Ordered: Yes # of Views/Limited/Complete: 1 View Indication: Chest Pain EP Interpretation: Yes Interpretation: no consolidation, no effusion, no pneumothorax Impression: No acute disease Interpreting ER Provider: signed Jose Rodríguez MD Last Vital Signs Date Time Temp Pulse Resp B/P Pulse Ox O2 Delivery O2 Flow Rate FiO2 05/25/17 23:55 98.1 63 15 121/80 98 Room Air Status: improved Disposition: HOME, SELF-CARE Condition: Improved Scripts Acetaminophen (Tylenol) 325 Mg Tablet 650 MG ORAL Q6H Y for Prn Pain/Headache/Temp > 101, #20 TAB 0 Refills Prov: Jose Rodríguez M.D. 05/25/17 Mag Hydrox/Al Hydrox/Simeth (MAALOX MAXIMUM STRENGTH SUSP) 355 Ml Oral.susp 30 ML PO Q6HR, #240 ML Prov: Jose Rodríguez M.D. 05/25/17 Famotidine (PEPCID) 20 Mg Tablet 20 MG ORAL DAILY, #20 TAB 1 Refill Prov: Jose Rodríguez M.D. 05/25/17 Jose Rodríguez M.D. May 25, 2017 20:14
[2017-05-25] MEDS ORDERED: Lidocaine 2% Visc 15ml soln ORAL ONE (20:15)
[2017-05-25] MEDS ORDERED: Mylanta II UD 30ml ORAL ONE (20:15)
[2017-05-25] MEDS ORDERED: Famotidine 20 MG/ 2ML VIAL IVP ONE (20:15)
[2017-05-25 20:37] VITALS: BP 155/85
[2017-05-25 20:48] LABS: BASOPHILS % (AUTO) 2.3 % (0.0-2.0); EOSINOPHILS % (AUTO) 8.7 % (0.0-3.0); LYMPHOCYTES % (AUTO) 33.4 % (20.0-45.0); MEAN CORPUSCULAR HEMOGLOBIN 29.4 PG (27.0-31.0); MEAN CORPUSCULAR HGB CONC 33.2 G/DL (32.0-36.0); MEAN CORPUSCULAR VOLUME 88 FL (80-99); MEAN PLATELET VOLUME 10.1 FL (6.5-10.1); MONOCYTES % (AUTO) 5.3 % (1.0-10.0); NEUTROPHILS % (AUTO) 50.3 % (45.0-75.0); PLATELET COUNT 243 K/UL (150-450); RED BLOOD COUNT 4.28 M/UL (4.20-5.40); RED CELL DISTRIBUTION WIDTH 11.1 % (11.6-14.8); WHITE BLOOD COUNT 8.7 K/UL (4.8-10.8)
[2017-05-25 20:49] LABS: APPEARANCE,URINE CLEAR; KETONES,URINE NEGATIVE (NEGATIVE); LEUKOCYTE ESTERASE ,URINE NEGATIVE (NEGATIVE); NITRITE,URINE NEGATIVE (NEGATIVE); PH,URINE 7 (4.5-8.0); PROTEIN,URINE NEGATIVE (NEGATIVE); UROBILINOGEN,URINE NORMAL MG/DL (0.0-1.0)
[2017-05-25 20:50] LABS: TROPONIN I < 0.30 ng/mL (<=0.30)
[2017-05-25 20:51] LABS: ALANINE AMINOTRANSFERASE 14 U/L (3-33); ALBUMIN/GLOBULIN RATIO 1.5 (1.0-2.7); ANION GAP 11 (5-15); ASPARTATE AMINO TRANSFERASE 19 U/L (5-40); CALCIUM 9.3 mg/dL (8.6-10.2); CARBON DIOXIDE 25 mEQ/L (20-30); CHLORIDE 103 mEQ/L (98-107); CREATININE 0.7 mg/dL (0.5-0.9); GLOMERULAR FILTRATION RATE > 60 mL/min (>60); HEMOLYSIS 3; POTASSIUM 3.4 mEQ/L (3.4-4.9); SODIUM 139 mEQ/L (135-145); TOTAL PROTEIN 7.5 g/dL (6.6-8.7)
[2017-05-25] MEDS ORDERED: MAALOX MAXIMUM355 M1 PO (23:43)
[2017-05-25] MEDS ORDERED: PEPCID20 MG ORAL (23:43)
[2017-05-25] MEDS ORDERED: TYLENOL325 MG ORAL (23:43)
[2017-05-25 23:55] VITALS: BP 121/80
--- NOTE | 2017-05-26 16:04 | Diagnostic Imaging Report ---
Indication: Chest pain Technique: Single portable AP view of the chest. Findings: Comparison: 12/04/2016 The bones and extra pulmonary soft tissues, cardiomediastinal silhouette, pulmonary vasculature and parenchyma, and pleural surfaces remain unremarkable. IMPRESSION: Negative portable AP chest, unchanged.
--- NOTE | 2017-05-27 15:35 | Cardiology Report ---
APPROVED REPORT EKG Measurement Heart [id number] Sinus bradycardia Moderate voltage criteria for LVH, may be normal variant Borderline ECG
== END 2017-05-25 23:57 | disposition home or self-care (01) ==
LOC: EMR 21:15
DX: R07.9 Chest pain, unspecified (principal); J45.909 Unspecified asthma, uncomplicated; I10 Essential (primary) hypertension; K21.9 Gastro-esophageal reflux disease without esophagitis; Z88.0 Allergy status to penicillin
CPT/HCPCS: 36415; 71010; 80053; 81003; 81025; 82550; 84484; 85025; 93005; 96374; 99284; S0028

== ENCOUNTER 2019-01-19 20:34 | Emergency (ER) | payer MEDICAID ==
[~2019-01-19] VITALS: Ht 160 cm; Wt 76.2 kg
[~2019-01-19 20:34] MED LIST changes: +MAALOX MAXIMUM355 M1 PO; +PEPCID20 MG ORAL; +TYLENOL325 MG ORAL
--- NOTE | 2019-01-19 20:50 | NUR ---
ED Nurse Note: Pt had asthma at 1030am this morning, feels chest pressure now. Pt had asthma attack 1 weekl ago, she was in [facility]. AO4 NAD VSS
[2019-01-19] MEDS ORDERED: Albuterol ud Inhalation HHN ONE ×2 (21:00→22:30)
[2019-01-19] MEDS ORDERED: Ipratropium 0.02% Inh Soln 2.5ml UD HHN ONE ×2 (21:00→22:30)
[2019-01-19 21:11] VITALS: BP 130/96
--- NOTE | 2019-01-19 21:12 | Emergency Room Report ---
History of Present Illness General Chief Complaint: Asthma Source: Patient Present Illness HPI Patient present with complains of asthma exacerbation reports that she was at [facility] in the beginning of January with similar problems she was put on steroids and her steroids recently ended She has mildly increased cough however denies any phlegm production denies any fevers denies any back or flank pain she had also complained of some chest tightness with the cough denies any pleurisy Allergies: Coded Allergies: PENICILLINS (Verified Allergy, Unknown, 12/04/16) Uncoded Allergies: PENECILLIN (Allergy, Unknown, 12/04/16) Patient History Past Medical History: see triage record Pertinent Family History: none Last Menstrual Period: Dec 17 2018 Now: No Reviewed Nursing Documentation: PMH: Agreed; PSxH: Agreed Nursing Documentation-PMH Hx Cardiac Problems: No Hx Hypertension: Yes Hx Asthma: Yes Hx Cancer: No Hx Gastrointestinal Problems: No Hx Neurological Problems: No Review of Systems All Other Systems: negative except mentioned in HPI Physical Exam Vital Signs Date Time Temp Pulse Resp B/P (MAP) Pulse Ox O2 Delivery O2 Flow Rate FiO2 01/19/19 20:39 98.6 89 20 130/96 92 Room Air Sp02 EP Interpretation: reviewed, abnormal - Borderline low at 92% after breathing treatment patient is saturating at 98% on room air which is normal Head: normocephalic, atraumatic Eyes: bilateral eye PERRL, bilateral eye EOMI ENT: hearing grossly normal, normal pharynx Neck: supple Respiratory: no retraction, no accessory muscle use, wheezing - bilaterally Cardiovascular #1: regular rate, rhythm Gastrointestinal: soft Genitourinary: no CVA tenderness Musculoskeletal: normal inspection Neurologic: alert, oriented x3, responsive Skin: normal color, no rash Lymphatic: no adenopathy Medical Decision Making Diagnostic Impression: Primary Impression: Shortness of breath ER Course Patient is a fairly complex patient with multiple differential to consideration including but not limited to cardiac cardiopulmonary and vascular emergencies On initial evaluation patient's lungs sounds showed very minimal wheeze Patient also reports that she had peep exam which showed a reading of 550 She should be a 650 And reports that she doesn't necessarily have an asthma exacerbation However does not know why she was having the chest discomfort Patient requesting chest x-ray I did discuss with her that she has had multiple x-rays including CT imaging of the chest given similar complaint previously Patient continues to saturate well was provided breathing treatment for symptomatically improvement Oxygenation is appropriate heart rate appropriate patient does not meet criteria for acute imaging for pulmonary embolism and requires improved outpatient follow-up Last Vital Signs Date Time Temp Pulse Resp B/P (MAP) Pulse Ox O2 Delivery O2 Flow Rate FiO2 01/19/19 20:39 98.6 89 20 130/96 92 Room Air Status: improved Disposition: HOME, SELF-CARE Condition: Improved Scripts Albuterol Sulfate* (ALBUTEROL SULFATE MDI*) 8.5 Gm Hfa.aer.ad 2 PUFF INH Q6H, #1 EA 0 Refills Prov: Trino Trammell MD 01/19/19 Prednisone* (PREDNISONE*) 20 Mg Tablet 40 MG ORAL DAILY, #10 TAB Prov: Trino Trammell MD 01/19/19 Additional Instructions: Patient is provided with the discharge instructions notified to follow up with primary doctor in the next 2-3 days otherwise return to the er with any worsening symptoms. Please note that this report is being documented using [employer] technology. This can lead to erroneous entry secondary to incorrect interpretation by the dictating instrument. Thony Diggs DO Jan 19, 2019 21:12
[2019-01-19 21:45] VITALS: BP 130/96
--- NOTE | 2019-01-19 21:45 | NUR ---
ER DISCHARGE NOTE: Patient is cleared to be discharged per ERMD, pt is aox4, on room air, with stable vital signs. pt was given dc and prescription instructions, pt was able to verbalize understanding, pt id band and iv site removed without complications. pt is able to ambulate with steady gait. pt took all belongings.
[2019-01-19] MEDS ORDERED: PREDNISONE20 MG ORAL (22:42)
[2019-01-19] MEDS ORDERED: ALBUTEROL SULF8.5 GM INH (22:42)
== END 2019-01-19 21:45 | disposition home or self-care (01) ==
LOC: EMR 20:57
DX: R06.02 Shortness of breath (principal); R05 Cough; I10 Essential (primary) hypertension; Z88.0 Allergy status to penicillin; J45.909 Unspecified asthma, uncomplicated; R07.9 Chest pain, unspecified
CPT/HCPCS: 94640; 94664; 99284; J7512